=== PATIENT | female | born 1960 | race Caucasian/White ===

== ENCOUNTER → 2016-06-21 | Day surgery (SDC) | payer BC, SELFPAY ==
[~2016-06-21] VITALS: Ht 149.9 cm; Wt 60.8 kg
[~2016-06-21] MED LIST: ATIVAN0.5 MG PO; CALCIUM + VITA1 EACH PO; CELEXA20 MG PO; FEOSOL325 MG PO; FOSAMAX70 MG PO
== END ==
LOC: OPS 09:39
PROC: 0HB6XZX Excision of Back Skin, External Approach, Diagnostic (ICD-10-PCS; principal; 2016-06-21)
DX: D17.1 Benign lipomatous neoplasm of skin and subcutaneous tissue of trunk (principal); N64.4 Mastodynia; F41.9 Anxiety disorder, unspecified; I10 Essential (primary) hypertension; E78.5 Hyperlipidemia, unspecified; M81.0 Age-related osteoporosis without current pathological fracture; M54.30 Sciatica, unspecified side; E55.9 Vitamin D deficiency, unspecified; Z90.710 Acquired absence of both cervix and uterus; Z80.0 Family history of malignant neoplasm of digestive organs; Z82.49 Family history of ischemic heart disease and other diseases of the circulatory system; M19.90 Unspecified osteoarthritis, unspecified site; Z79.899 Other long term (current) drug therapy
CPT/HCPCS: 99070; J2704; J3010